=== PATIENT | female | born 2000 | race Two or more races ===

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

== ENCOUNTER 2024-04-04 20:47 | Emergency (ER) | payer MEDICAID, OTHER ==
[~2024-04-04] VITALS: Ht 162.6 cm; Wt 77.6 kg
[2024-04-04 20:59] VITALS: BP 117/75; PULSE 78; RESP 18; TEMP 98.4; O2SAT 100
[2024-04-05] MEDS: LIDOCAINE 1% HCL (LOCAL ANESTH.) INJ 20ML MDV ONE (00:44)
[2024-04-05] MEDS: LIDOCAINE 1% HCL (LOCAL ANESTH.) INJ 20ML MDV ID ONE (00:45)
[2024-04-05] MEDS ORDERED: BACIOIN15 TOP (00:52)
[2024-04-05] MEDS ORDERED: ACET500T58 PO (00:52)
== END 2024-04-05 01:46 | disposition home or self-care (01) ==
LOC: ER 20:47
DX: S81.811A Laceration without foreign body, right lower leg, initial encounter (principal); Z79.899 Other long term (current) drug therapy; W20.8XXA Other cause of strike by thrown, projected or falling object, initial encounter; Y93.89 Activity, other specified; Y92.89 Other specified places as the place of occurrence of the external cause; Y99.0 Civilian activity done for income or pay
CPT/HCPCS: 12002; 99282; J2001

== ENCOUNTER 2024-04-21 04:51 | Emergency (ER) | payer OTHER ==
[~2024-04-21] VITALS: Ht 162.6 cm; Wt 78.0 kg
[~2024-04-21 04:51] MED LIST: ACET500T58 PO; BACIOIN15 TOP
[2024-04-21 05:23] VITALS: BP 118/72; PULSE 70; RESP 16; TEMP 98.7; O2SAT 100
== END 2024-04-21 05:28 | disposition home or self-care (01) ==
LOC: ER 04:51
DX: S81.811D Laceration without foreign body, right lower leg, subsequent encounter (principal); X58.XXXD Exposure to other specified factors, subsequent encounter